=== PATIENT | female | born 1960 | race Caucasian/White ===

== ENCOUNTER → 2017-10-14 07:56 | Outpatient (CLI) | payer BC | END | disposition home or self-care (01) | LOC: D.RAD 10-05 09:00 → D.CT 10-05 10:00 → D.RAD 07:56 | DX: M47.22 Other spondylosis with radiculopathy, cervical region (principal); M25.78 Osteophyte, vertebrae; M50.13 Cervical disc disorder with radiculopathy, cervicothoracic region; M50.11 Cervical disc disorder with radiculopathy, high cervical region ==

== ENCOUNTER 2017-10-14 09:49 | Emergency (ER) | payer BC | END 2017-10-14 13:15 | disposition home or self-care (01) | LOC: D.ER 09:49 | DX: G97.1 Other reaction to spinal and lumbar puncture (principal); Z87.820 Personal history of traumatic brain injury ==

== ENCOUNTER 2018-11-20 07:34 | Emergency (ER) | payer BC ==
[~2018-11-20] VITALS: Ht 170.2 cm; Wt 82.7 kg
[2018-11-20 07:37] VITALS: Ht 170.2 cm; Wt 82.7 kg
[2018-11-20] MEDS ORDERED: OXYCONTIN10 MG (07:40)
[2018-11-20] MEDS ORDERED: ZOFRAN4 MG (07:40)
[2018-11-20 08:27] LABS: BASOPHILS 0.3 % (0-2); EOSINOPHILS 2.1 % (0-7); HEMATOCRIT 43.5 % (36.0-48.0); HEMOGLOBIN 15.1 g/dL (12-16); LYMPHOCYTES 25.2 % (15-50); MCH 28.8 pg (26.0-34.0); MCHC 34.7 g/dL (31.0-37.0); MEAN PLATELET VOLUME 10.1 fL (7.4-10.4); MONOCYTES 5.6 % (2-11); NEUTROPHILS 66.8 % (40-80); PLATELET COUNT 141 10x3/uL (130-400); RBC 5.24 10x6/uL (4.00-5.40); RDW 12.4 % (11.5-14.5); WBC 6.3 10x3/uL (4.8-10.8)
[2018-11-20 08:39] LABS: ALBUMIN 4.1 g/dL (3.4-5.0); ALKALINE PHOSPHATASE 90 U/L (46-116); ALT (SGPT) 42 U/L (10-68); AMYLASE - SERUM 49 U/L (25-115); BILIRUBIN - TOTAL 0.46 mg/dL (0.2-1.3); CALC OSMOLALITY 291 mosm/kg (275-300); CALCIUM 9.1 mg/dL (8.5-10.1); CARBON DIOXIDE 28.1 mmol/L (21.0-32.0); CHLORIDE - SERUM 107 mmol/L (98-107); CREATININE - SERUM 0.6 mg/dL (0.6-1.3); GLUCOSE 95 mg/dL (74-106); LIPASE 98 U/L (73-393); POTASSIUM - SERUM 3.7 mmol/L (3.5-5.1); PROTEIN - SERUM 7.6 g/dL (6.4-8.2); SODIUM 147 mmol/L (136-145); UREA NITROGEN 13 mg/dL (7-18); eGFR NON AFRICAN AMERICAN > 90 mL/min (90-120)
[2018-11-20 08:46] LABS: APPEARANCE CLEAR (CLEAR); BILIRUBIN NEGATIVE (NEGATIVE); COLOR YELLOW (YELLOW); GLUCOSE NEGATIVE (NEGATIVE); KETONE NEGATIVE (NEGATIVE); NITRITE NEGATIVE (NEGATIVE); PROTEIN NEGATIVE (NEGATIVE); SPECIFIC GRAVITY 1.015 (1.005-1.020); UROBILINOGEN NORMAL (NORMAL)
[2018-11-20] MEDS ORDERED: NEXIUM20 MG PO (13:22)
[2018-11-20] MEDS ORDERED: DILAUDID2 MG PO (13:23)
[2018-11-20 14:33] VITALS: BP 142/76
== END 2018-11-20 14:35 | disposition home or self-care (01) ==
LOC: D.ER 07:34
PROVIDERS: Emergency Medicine
DX: R10.9 Unspecified abdominal pain (principal)